=== PATIENT | female | born 1950 | race Caucasian/White ===

== ENCOUNTER 2019-09-27 16:14 | Observation (INO) ==
--- NOTE | 2019-09-27 16:53 | ERNOTE ---
[facility] Date of Service: 09/27/19 Presenting Symptoms: dental pain Time Seen by Provider: 09/27/19 16:38 Source: patient Exam Limitations: no limitations - Immun/Allergies/Home Medications Immunizations: IMMUNIZATION HX Immunizations Up to Date Yes History of Influenza Vaccine No Hx Pneumococcal Vaccination No Allergies/Adverse Reactions: Allergies Allergy/AdvReac Type Severity Reaction Status Date / Time No Known Allergies Allergy Unverified 09/27/19 16:30 Home Medications: HOME MEDICATIONS Hydrochlorothiazide [Hydrodiuril] 25 mg PO DAILY 09/27/19 [Last Taken Unknown] Lisinopril [Prinivil] 10 mg PO DAILY 09/27/19 [Last Taken Unknown] - History of Present Illness Narrative: 69-year-old female complaining of swelling of the right cheek began 24 hours ago has become more swollen is red spots painful she cannot eat she says she is also been running a temperature at home but we have not recorded Date (Duration): 09/25/19 Time (Timing): 16:49 Severity: Present: moderate ENT Location: Present: dental, facial Prearrival Treatment: Present: over the counter meds Modifying Factors - Improves: Reports: nothing Modifying Factors - Worsens: Reports: nothing Associated Symptoms - ENT: Reports: fever, tooth pain, jaw swelling Review of Systems - Review of Systems Constitutional: Present: recent illness EYE: Present: no symptoms reported ENT: Present: no symptoms reported Respiratory: Present: no symptoms reported Cardiology: Present: no symptoms reported Gastrointestinal/Abdominal: Present: no symptoms reported Genitourinary: Present: no symptoms reported Musculoskeletal: Present: no symptoms reported Skin: Present: no symptoms reported Neurological: Present: no symptoms reported Endocrine: Present: no symptoms reported Hematologic/Lymphatic: Present: no symptoms reported All Other Systems: All systems neg except as marked Medical History (Last Reviewed 09/27/19 @ 16:51 by Octavio Anderson MD) High blood pressure Surgical History: Surgical History (Last Reviewed 09/27/19 @ 17:18 by Mimi Adamson RN) No pertinent past surgical history Social History: (Last Reviewed 09/27/19 @ 17:18 by Mimi Adamson RN) Tobacco: Smoking Status: Never smoker Alcohol: alcohol intake: never Substance Use: substance use type: does not use Physical Exam - Physical Exam General Appearance: Present: wd/wn, alert, moderate distress Head Exam: Present: other - Right side of the face swollen red hot painful to touch Eye Exam: Normal inspection: bilateral Ears, Nose, Throat: Present: other - Right side of the face cheek red hot tender upper molar extremely painful Neck: Present: normal inspection, supple, lymphadenopathy (L) Respiratory: Present: no respiratory distress Cardiovascular/Chest: Present: regular rate, rhythm Back Exam: Present: normal inspection Extremity Exam: Present: normal inspection Neurological Exam: Present: alert Skin Exam: Present: other - Right cheek red hot swollen Progress - Results and Orders Patient's Lab Results:: I have reviewed the patient's lab results. Results and Orders: Laboratory Tests 09/27/19 17:09 WBC 19.1 H RBC 4.42 Hgb 13.9 Hct 40.9 MCV 92.5 MCH 31.4 H Neutrophils % 81.0 H Lymphocytes % 11.7 L Laboratory Tests 09/27/19 09/27/19 17:09 17:09 PT 10.7 INR (Anticoag Therapy) 1.08 PTT ([place]) 26.9 Sodium 137 Plasma Sodium 137 Potassium 3.5 Chloride 100 Carbon Dioxide 26.1 Anion Gap 14.4 H BUN 17 Creatinine 1.20 Est GFR (Non-Af Amer) 47 L BUN/Creatinine Ratio 14.2 Random Glucose 127 H Calcium 9.5 Calcium Adj for Albumin 9.1 Total Bilirubin 1.2 H AST 12 Alkaline Phosphatase 89 Total Protein 8.2 Albumin 4.1 - Vital Signs Patient's Vital Signs:: I have reviewed the patient's vital signs. Vital Signs: Vital Signs 09/27/19 16:26 Temperature 37.3 C Pulse Rate 93 Respiratory Rate 16 Blood Pressure 177/80 H O2 Sat by Pulse Oximetry 98 - CT/Ultrasound CT/Ultrasound Narrative: MPRESSION: 1. NONSPECIFIC RIGHT-SIDED PAROTIDITIS. 2. SURROUNDING INFLAMMATION BUT WITHOUT DISCRETE FLUID COLLECTION OR ABSCESS FORMATION IDENTIFIED. 3. NONSPECIFIC LYMPHADENOPATHY THAT APPEARS REACTIVE. 4. INCOMPLETELY EVALUATED INDETERMINATE RIGHT THYROID CYSTIC NODULES. RECOMMEND FOLLOW-UP WITH NONEMERGENT THYROID ULTRASOUND FOR FURTHER EVALUATION. Electronically signed by Shemar Mccabe M.D.. Shemar Mccabe MD CT maxillofacial - Progress/Reassessment Chief Complaint: Dental Problem Progress:: Unchanged Progress Note-Subjective: 09/27/19 18:49 Have tried several minutes of carotid massage to get any secretion or stone with no success have spoken to ENT they will consult in the morning and will admit to [facility] for antibiotics and pain control Plan - Plan Plan: Patient be admitted to the hospital for antibiotics and pain control to Dr. Argueta also Dr. Goldstein ENT has been consult Departure Clinical Impression: Parotitis not due to mumps, Cellulitis of face - Departure Disposition: Short Term Hospital Inpatient Condition: Stable Referrals: Shelley Perry MD [Primary Care Provider] -
[2019-09-27] MEDS ORDERED: NORMAL SALINE 1,000 ML IV ONE (16:54)
[2019-09-27] MEDS ORDERED: AMPICILLIN SODIUM/SULBACTAM NA 3 GM in NORMAL SALINE 100 ML IV ONE (16:57)
[2019-09-27] MEDS ORDERED: KETOROLAC TROMETHAMINE 30 MG/ML VIAL IV ONE (16:57)
[2019-09-27 17:15] LABS: Hematocrit 40.9 % (37.0-47.0); Hemoglobin 13.9 gm/dL (12.5-16.0); Mean Cell Volume 92.5 fl (78-100); Mean Corpuscular Hemoglobin 31.4 pg (27-31); Mean Platelet Volume 9.2 fl (8-12.5); Neutrophil # 15.5 K/mm3 (1.3-6.0); Platelet Count 265 K/mm3 (150-450); Red Blood Count 4.42 M/mm3 (4.2-5.4); Red Cell Distribution Width 12.8 % (11.5-14.0); White Blood Count 19.1 K/mm3 (4.0-10.5)
[2019-09-27 17:32] LABS: Albumin * 4.1 gm/dl (3.4-5.0); Anion Gap 14.4 mmol/L (6.8-13.8); BUN/Creatinine Ratio 14.2 (9.0-21.6); Bilirubin, Total 1.2 mg/dL (0.0-1.1); Ca. Corrected For Albumin 9.1 mg/dL (8.4-10.2); Calcium * 9.5 mg/dL (7.9-10.9); Carbon Dioxide 26.1 mmol/L (24-32.6); Potassium 3.5 mmol/L (3.4-4.6); Prothrombin Time (Patient) 10.7 Seconds (9.1-10.7); Total Protein 8.2 gm/dL (6.2-8.2)
[2019-09-27 17:33] LABS: INR 1.08 INR (0.92-1.08); Partial Thrombolplastin Time 26.9 Seconds (24-32)
[2019-09-27] MEDS ORDERED: AMPICILLIN SODIUM/SULBACTAM NA 3 GM in NORMAL SALINE 100 ML IV SCH (19:15)
--- NOTE | 2019-09-27 19:20 | HP ---
Chief Complaint - Chief Complaint Date of Service: 09/27/19 Time of Service: 19:00 Chief Complaint: Right-sided facial pain x2 days History of Present Illness: 69-year-old female with a past medical history of hypertension presents with right facial pain. She states her symptoms began 2 days ago and have progressively worsened. Pain was is rated 10 out of 10 at its worse. She also notes tenderness to palpation of her face. She reports having fever of 101 F at home. She states she was eating and drinking without difficulty at home. She was up all night due to the pain and presented to the emergency department today. In the emergency department she was found to have leukocytosis of 19.1 CT head is positive for right-sided parotiditis without discrete abscess formation, nonspecific lymphadenopathy that appears reactive and right cystic thyroid nodules that would need nonemergent thyroid ultrasound for follow-up. She received a dose of Unasyn in the emergency department and pain is tolerable withIV ketorolac. She is being admitted for parotiditis and ENT has been consulted and will see her in the morning. Medical History (Last Reviewed 09/27/19 @ 17:18 by Mimi Adamson RN) High blood pressure Surgical History: Surgical History (Last Reviewed 09/27/19 @ 17:18 by Mimi Adamson RN) No pertinent past surgical history Family History: Family History (Last Updated 09/27/19 @ 19:17 by Viry Argueta MD) Other Family history non-contributory Social History: (Last Reviewed 09/27/19 @ 17:18 by Mimi Adamson RN) Tobacco: Smoking Status: Never smoker Alcohol: alcohol intake: never Substance Use: substance use type: does not use Review Of Systems (GEN) - Review of Systems Generalized/Overall Review: Present: Fever EENTM: Present: Other - Right-sided facial pain Respiratory: Absent: Shortness of Breath Cardiac: Absent: Chest Pain Abdominal: Absent: Abdominal Pain Misc: All systems neg except as marked Immunizations: IMMUNIZATION HX Immunizations Up to Date Yes History of Influenza Vaccine No Hx Pneumococcal Vaccination No Allergies/Adverse Reactions: Allergies Allergy/AdvReac Type Severity Reaction Status Date / Time No Known Allergies Allergy Unverified 09/27/19 16:30 Home Medications: HOME MEDICATIONS Hydrochlorothiazide [Hydrodiuril] 25 mg PO DAILY 09/27/19 [Last Taken Unknown] Lisinopril [Prinivil] 10 mg PO DAILY 09/27/19 [Last Taken Unknown] Exam - Exam Vital Signs: Vital Signs - Last Taken Temp 37.4 C 09/27/19 18:47 Pulse 80 09/27/19 18:47 Resp 18 09/27/19 18:47 BP 159/76 H 09/27/19 18:47 Pulse Ox 97 09/27/19 18:47 Constitutional: Present: Alert, Well developed, Well nourished, No distress, Elderly ENT Exam: Present: hearing grossly normal, moist mucous membranes, other - Inflammation of the right parotid gland, gland is firm and very tender to palpation Eye Exam: bilateral eye: normal inspection, PERRL, EOMI Neck: Absent: normal inspection, lymphadenopathy (L) Back Exam: Present: no CVA tenderness Respiratory: Present: lungs clear, no respiratory distress, no accessory muscle use, No wheezing. Absent: crackles, rhonchi Cardiovascular/Chest: Present: normal peripheral pulses, regular rate, rhythm, no edema, no murmur Peripheral Pulses: dorsalis-pedis (R): 1+, dorsalis-pedis (L): 1+ Abdomen: Present: Normal bowel sounds, soft, nontender Extremity: Present: no pedal edema Skin Exam: Present: normal color, warm/dry Neurologic: Present: alert, normal mood/affect Appearance: Present: appropriate appearance, appropriate insight Eye contact: Present: cooperative Thoughts: Present: normal thought pattern, normal mood /affect Diagnostic Studies: Abnormal Lab Results 09/27/19 09/27/19 Range/Units 17:09 17:09 WBC 19.1 H (4.0-10.5) K/mm3 MCH 31.4 H (27-31) pg Immature Gran % (Auto) 0.50 H (0.001-0.429) % Immature Gran # (Auto) 0.10 H (0.000-0.0310) K/mm3 Neutrophils % 81.0 H (42-75.0) % Lymphocytes % 11.7 L (20-51) % Neutrophils # 15.5 H (1.3-6.0) K/mm3 Monocytes # 1.2 H (0.0-1.0) k/mm3 Anion Gap 14.4 H (6.8-13.8) mmol/L Est GFR (Non-Af Amer) 47 L (60-130) mL/min Random Glucose 127 H (70-110) mg/dL Total Bilirubin 1.2 H (0.0-1.1) mg/dL ALT 17 L (19-67) U/L Laboratory Results WBC 19.1 K/mm3 (4.0-10.5) H 09/27/19 17:09 RBC 4.42 M/mm3 (4.2-5.4) 09/27/19 17:09 Hgb 13.9 gm/dL (12.5-16.0) 09/27/19 17:09 Hct 40.9 % (37.0-47.0) 09/27/19 17:09 MCV 92.5 fl (78-100) 09/27/19 17:09 MCH 31.4 pg (27-31) H 09/27/19 17:09 MCHC 34.0 g/dl (32-36) 09/27/19 17:09 RDW 12.8 % (11.5-14.0) 09/27/19 17:09 Plt Count 265 K/mm3 (150-450) 09/27/19 17:09 MPV 9.2 fl (8-12.5) 09/27/19 17:09 Immature Gran % (Auto) 0.50 % (0.001-0.429) H 09/27/19 17:09 Immature Gran # (Auto) 0.10 K/mm3 (0.000-0.0310) H 09/27/19 17:09 Neutrophils % 81.0 % (42-75.0) H 09/27/19 17:09 Lymphocytes % 11.7 % (20-51) L 09/27/19 17:09 Monocytes % 6.5 % (0.0-9) 09/27/19 17:09 Eosinophils % 0.1 % (0.0-3.0) 09/27/19 17:09 Basophils % 0.2 % (0.0-1.0) 09/27/19 17:09 Nucleated RBC % 0.0 k/mm3 (0-1) 09/27/19 17:09 Neutrophils # 15.5 K/mm3 (1.3-6.0) H 09/27/19 17:09 Lymphocytes # 2.24 k/mm3 (1.5-3.5) 09/27/19 17:09 Monocytes # 1.2 k/mm3 (0.0-1.0) H 09/27/19 17:09 Eosinophils # 0.0 k/mm3 (0.0-0.7) 09/27/19 17:09 Absolute Basophils 0.0 k/mm3 (0.0-0.1) 09/27/19 17:09 PT 10.7 Seconds (9.1-10.7) 09/27/19 17:09 INR (Anticoag Therapy) 1.08 INR (0.92-1.08) 09/27/19 17:09 PTT ([place]) 26.9 Seconds (24-32) 09/27/19 17:09 Sodium 137 mmol/L (132-142) 09/27/19 17:09 Plasma Sodium 137 mmol/L (130-142) 09/27/19 17:09 Potassium 3.5 mmol/L (3.4-4.6) 09/27/19 17:09 Chloride 100 mmol/L (97-106) 09/27/19 17:09 Carbon Dioxide 26.1 mmol/L (24-32.6) 09/27/19 17:09 Anion Gap 14.4 mmol/L (6.8-13.8) H 09/27/19 17:09 BUN 17 mg/dL (3-23) 09/27/19 17:09 Creatinine 1.20 mg/dL (0.4-1.4) 09/27/19 17:09 Est GFR (Non-Af Amer) 47 mL/min (60-130) L 09/27/19 17:09 BUN/Creatinine Ratio 14.2 (9.0-21.6) 09/27/19 17:09 Random Glucose 127 mg/dL (70-110) H 09/27/19 17:09 Calcium 9.5 mg/dL (7.9-10.9) 09/27/19 17:09 Calcium Adj for Albumin 9.1 mg/dL (8.4-10.2) 09/27/19 17:09 Total Bilirubin 1.2 mg/dL (0.0-1.1) H 09/27/19 17:09 AST 12 U/L (0-48) 09/27/19 17:09 ALT 17 U/L (19-67) L 09/27/19 17:09 Alkaline Phosphatase 89 U/L (50-170) 09/27/19 17:09 Total Protein 8.2 gm/dL (6.2-8.2) 09/27/19 17:09 Albumin 4.1 gm/dl (3.4-5.0) 09/27/19 17:09 Assessment/Plan - Narrative Narrative: 69-year-old female with a past medical history of hypertension presents with right facial pain. She states her symptoms began 2 days ago and have progressively worsened. Pain was is rated 10 out of 10 at its worse. She also notes tenderness to palpation of her face. She reports having fever of 101 F a t home. She states she was eating and drinking without difficulty at home. She was up all night due to the pain and presented to the emergency department today. In the emergency department she was found to have leukocytosis of 19.1 CT head is positive for right-sided parotiditis without discrete abscess formation, nonspecific lymphadenopathy that appears reactive and right cystic thyroid nodules that would need nonemergent thyroid ultrasound for follow-up. She received a dose of Unasyn in the emergency department and pain is tolerable with IV ketorolac. She is being admitted for parotiditis and ENT has been consulted and will see her in the morning. Plan #1 Continue with ampicillin 3 g every 6 hours IV #2 continue with Toradol 15 mg every 6 hours as needed pain #3 CBC and CMP in the morning #4 awaiting ENT recommendations #5 continue with home medications - Assessment/Plan (1) Parotitis not due to mumps Problem: Acute (2) Hypertension Problem: Chronic Qualifiers: Hypertension type: essential hypertension Qualified Code(s): I10 - Essential (primary) hypertension
[2019-09-27] MEDS ORDERED: ACETAMINOPHEN 325 MG TABLET PO PRN (20:25)
[2019-09-27] MEDS: oxyCODONE HCL/ACETAMINOPHEN 1 TAB TABLET PO PRN (22:45)
[2019-09-27] MEDS: KETOROLAC TROMETHAMINE 15 MG/ML VIAL IV PRN (23:58)
[2019-09-28] MEDS: AMPICILLIN SODIUM/SULBACTAM NA 3 GM in NORMAL SALINE 100 ML IV SCH ×6 (00:22→17:44)
[2019-09-28] MEDS: oxyCODONE HCL/ACETAMINOPHEN 1 TAB TABLET PO PRN ×2 (05:31→10:45)
[2019-09-28 07:01] LABS: Albumin * 3.1 gm/dl (3.4-5.0); Anion Gap 11.7 mmol/L (6.8-13.8); BUN/Creatinine Ratio 13.8 (9.0-21.6); Bilirubin, Total 1.1 mg/dL (0.0-1.1); Ca. Corrected For Albumin 8.8 mg/dL (8.4-10.2); Calcium * 8.4 mg/dL (7.9-10.9); Carbon Dioxide 26.7 mmol/L (24-32.6); Potassium 3.4 mmol/L (3.4-4.6); Total Protein 6.5 gm/dL (6.2-8.2)
[2019-09-28] MEDS ORDERED: KETOROLAC TROMETHAMINE 30 MG/ML VIAL ONE (07:16)
[2019-09-28] MEDS: KETOROLAC TROMETHAMINE 15 MG/ML VIAL IV PRN ×2 (07:21→17:44)
[2019-09-28 07:31] LABS: Hematocrit 34.3 % (37.0-47.0); Hemoglobin 11.6 gm/dL (12.5-16.0); Mean Cell Volume 93.2 fl (78-100); Mean Corpuscular Hemoglobin 31.5 pg (27-31); Mean Corpuscular Hgb Conc 33.8 g/dl (32-36); Mean Platelet Volume 9.6 fl (8-12.5); Platelet Count 219 K/mm3 (150-450); Red Blood Count 3.68 M/mm3 (4.2-5.4); White Blood Count 20.2 K/mm3 (4.0-10.5)
[2019-09-28 07:33] LABS: Total Cells Counted 100
[2019-09-28 07:39] LABS: Lymphocyte 10 % (20-51); Monocyte 6 % (0-9); Neutrophil 84 % (42-75); Platelet Estimate Normal (NORMAL); RBC Morphology Normal (NORMAL)
[2019-09-28] MEDS: HYDROCHLOROTHIAZIDE 25 MG TABLET PO SCH (08:41)
[2019-09-28] MEDS: LISINOPRIL 10 MG TABLET PO SCH (08:41)
--- NOTE | 2019-09-28 09:55 | PN ---
Subjective - Date and Time Seen Date: 09/28/19 Time: 09:41 Subjective Narrative: She is tolerating liquid diet and states her pain has improved with the pain medications. She was able to sleep at night. Objective - Review of Systems Generalized/Overall Review: Denies: Fever EENTM: Reports: Other - Right facial pain and swelling Respiratory: Denies: Shortness of Breath Cardiac: Denies: Chest Pain Abdominal: Denies: Abdominal Pain Misc: All systems neg except as marked - Vitals Vitals: Last Vital Signs Temp 37.0 C 09/28/19 08:00 Pulse 78 09/28/19 08:41 Resp 20 09/28/19 08:00 BP 111/65 09/28/19 08:41 Pulse Ox 93 09/28/19 08:00 - Abnormal Lab Findings Abnormal Lab Findings: Abnormal Lab Results 09/27/19 09/27/19 09/28/19 Range/Units 17:09 17:09 06:40 WBC 19.1 H 20.2 H (4.0-10.5) K/mm3 RBC 3.68 L (4.2-5.4) M/mm3 Hgb 11.6 L (12.5-16.0) gm/dL Hct 34.3 L (37.0-47.0) % MCH 31.4 H 31.5 H (27-31) pg Immature Gran % (Auto) 0.50 H (0.001-0.429) % Immature Gran # (Auto) 0.10 H (0.000-0.0310) K/mm3 Neutrophils % 81.0 H (42-75.0) % Neutrophils % (Manual) 84 H (42-75) % Lymphocytes % 11.7 L (20-51) % Lymphocytes % (Manual) 10 L (20-51) % Neutrophils # 15.5 H (1.3-6.0) K/mm3 Neutrophils # (Manual) 17.0 H (1.3-6.0) K/mm3 Monocytes # 1.2 H (0.0-1.0) k/mm3 Monocytes # (Manual) 1.2 H (0.0-1.0) k/mm3 Anion Gap 14.4 H (6.8-13.8) mmol/L Est GFR (Non-Af Amer) 47 L (60-130) mL/min Random Glucose 127 H (70-110) mg/dL Total Bilirubin 1.2 H (0.0-1.1) mg/dL ALT 17 L (19-67) U/L Albumin (3.4-5.0) gm/dl /18/20 Range/Units 06:40 WBC (4.0-10.5) K/mm3 RBC (4.2-5.4) M/mm3 Hgb (12.5-16.0) gm/dL Hct (37.0-47.0) % MCH (27-31) pg Immature Gran % (Auto) (0.001-0.429) % Immature Gran # (Auto) (0.000-0.0310) K/mm3 Neutrophils % (42-75.0) % Neutrophils % (Manual) (42-75) % Lymphocytes % (20-51) % Lymphocytes % (Manual) (20-51) % Neutrophils # (1.3-6.0) K/mm3 Neutrophils # (Manual) (1.3-6.0) K/mm3 Monocytes # (0.0-1.0) k/mm3 Monocytes # (Manual) (0.0-1.0) k/mm3 Anion Gap (6.8-13.8) mmol/L Est GFR (Non-Af Amer) 40 L (60-130) mL/min Random Glucose 130 H (70-110) mg/dL Total Bilirubin (0.0-1.1) mg/dL ALT 17 L (19-67) U/L Albumin 3.1 L (3.4-5.0) gm/dl - Exam Constitutional: Present: Alert, Well developed, Well nourished, No distress, Obese ENT Exam: Present: hearing grossly normal, other - Edema of right parotid, firm and very tender to palpation Neck: Absent: lymphadenopathy (R), lymphadenopathy (L) Respiratory: Present: lungs clear, no respiratory distress, no accessory muscle use. Absent: rhonchi, wheezing Cardiovascular/Chest: Present: normal peripheral pulses, regular rate, rhythm, no edema, no murmur Abdomen: Present: Normal bowel sounds, soft, nontender Extremity: Present: no pedal edema Skin Exam: Present: normal color, warm/dry Neurologic: Present: alert, normal mood/affect Appearance: Present: appropriate appearance, appropriate insight Eye contact: Present: cooperative Thoughts: Present: normal thought pattern, normal mood /affect Assessment/Plan Plan Narrative: 69-year-old female with a past medical history of hypertension presents with right facial pain. She states her symptoms began 2 days ago and have progressively worsened. Pain was is rated 10 out of 10 at its worse. She also notes tenderness to palpation of her face. She reports having fever of 101 F at home. She states she was eating and drinking without difficulty at home. She was up all night due to the pain and presented to the emergency department today. In the emergency department she was found to have leukocytosis of 19.1 CT head is positive for right-sided parotiditis without discrete abscess formation, nonspecific lymphadenopathy that appears reactive and right cystic thyroid nodules that would need nonemergent thyroid ultrasound for follow-up. She received a dose of Unasyn in the emergency department and pain is tolerable with IV ketorolac. She is being admitted for parotiditis and ENT has been consulted and will see her in the morning. Patient does feel better today and is tolerating a liquid diet. Her pain persists but has improved. ENT Dr. Santos was consulted and he recommends giving the patient Decadron 10 mg daily for 2 days, continue with Unasyn and if the patient improves she can be sent home tomorrow morning on Augmentin and Medrol dose pack. He will follow-up with her in [place] next week on Wednesday, October 04, 2019. He will also do a thyroid ultrasound at his office. Plan #1 Continue with ampicillin 3 g every 6 hours IV day 2 #2 continue with Toradol 15 mg every 6 hours as needed pain and Percocet 53 25 every 4 hours as needed #3 CBC and CMP in the morning #4 Per ENT recommendations, start Decadron 10 mg daily for 2 days #5 continue with home medications - Problems/Diagnosis (1) Parotitis not due to mumps Problem: Acute (2) Hypertension Problem: Chronic Qualifiers: Hypertension type: essential hypertension Qualified Code(s): I10 - Essential (primary) hypertension (3) Thyroid nodule Problem: Acute
[2019-09-28] MEDS: DEXAMETHASONE SODIUM PHOSPHATE 10 MG/ML VIAL IV SCH (11:32)
[2019-09-29] MEDS: AMPICILLIN SODIUM/SULBACTAM NA 3 GM in NORMAL SALINE 100 ML IV SCH ×2 (00:34→06:31)
[2019-09-29 06:55] LABS: Hematocrit 32.6 % (37.0-47.0); Mean Cell Volume 92.4 fl (78-100); Mean Corpuscular Hemoglobin 31.2 pg (27-31); Mean Corpuscular Hgb Conc 33.7 g/dl (32-36); Mean Platelet Volume 9.5 fl (8-12.5); Neutrophil # 17.1 K/mm3 (1.3-6.0); Neutrophil % 85.5 % (42-75.0); Platelet Count 233 K/mm3 (150-450); Red Blood Count 3.53 M/mm3 (4.2-5.4); Red Cell Distribution Width 12.8 % (11.5-14.0)
[2019-09-29 07:11] LABS: Albumin * 2.8 gm/dl (3.4-5.0); Anion Gap 10.2 mmol/L (6.8-13.8); BUN/Creatinine Ratio 17.9 (9.0-21.6); Bilirubin, Total 0.5 mg/dL (0.0-1.1); Ca. Corrected For Albumin 9.3 mg/dL (8.4-10.2); Calcium * 8.7 mg/dL (7.9-10.9); Carbon Dioxide 28.3 mmol/L (24-32.6); Potassium 3.5 mmol/L (3.4-4.6); Total Protein 6.5 gm/dL (6.2-8.2)
[2019-09-29] MEDS: HYDROCHLOROTHIAZIDE 25 MG TABLET PO SCH (08:15)
[2019-09-29] MEDS: LISINOPRIL 10 MG TABLET PO SCH (08:16)
[2019-09-29] MEDS: DEXAMETHASONE SODIUM PHOSPHATE 10 MG/ML VIAL IV SCH (08:20)
[2019-09-29] MEDS ORDERED: AMOX TR/POTASSIUM CLAVULANATE 875 MG TABLET PO SCH (09:00)
--- NOTE | 2019-09-29 10:20 | DS ---
(1) Parotitis not due to mumps Problem: Acute (2) Hypertension Problem: Chronic Qualifiers: Hypertension type: essential hypertension Qualified Code(s): I10 - Essential (primary) hypertension (3) Thyroid nodule Problem: Acute Hospital Course: 69-year-old female with a past medical history of hypertension presents with right facial pain. She states her symptoms began 2 days ago and have progressively worsened. Pain was is rated 10 out of 10 at its worse. She also notes tenderness to palpation of her face. She reports having fever of 101 F at home. She states she was eating and drinking without difficulty at home. She was up all night due to the pain and presented to the emergency department today. In the emergency department she was found to have leukocytosis of 19.1 CT head is positive for right-sided parotiditis without discrete abscess formation, nonspecific lymphadenopathy that appears reactive and right cystic thyroid nodules that would need nonemergent thyroid ultrasound for follow-up. She received a dose of Unasyn in the emergency department and pain is tolerable with IV ketorolac. She is being admitted for parotiditis and ENT has been consulted and will see her in the morning. ENT Dr. Santos was consulted and he recommended giving the patient Decadron 10 mg daily for 2 days, He will follow-up with her in [place] next week on Wednesday, October 04, 2019. He will also do a thyroid ultrasound at his office. She is stable for discharge home today. She will go home on Augmentin 875-125 mg twice a day for 10 days and Medrol Dosepak. She will follow-up with Dr. Diaz next week. She is feeling better and is tolerating her diet as well. Procedures Performed: none Results and Findings: Pending Mircobiology Results 09/27/19 17:32 Blood Blood Culture - Preliminary NO GROWTH 24 HOURS 09/27/19 17:09 Blood Blood Culture - Preliminary NO GROWTH 24 HOURS Lab Pending Results 09/27/19 17:09: WBC 19.1 H, RBC 4.42, Hgb 13.9, Hct 40.9, MCV 92.5, MCH 31.4 H, MCHC 34.0, RDW 12.8, Plt Count 265, MPV 9.2, Immature Gran % (Auto) 0.50 H, Immature Gran # (Auto) 0.10 H, Neutrophils % 81.0 H, Lymphocytes % 11.7 L, Monocytes % 6.5, Eosinophils % 0.1, Basophils % 0.2, Nucleated RBC % 0.0, Neutrophils # 15.5 H, Lymphocytes # 2.24, Monocytes # 1.2 H, Eosinophils # 0.0, Absolute Basophils 0.0 09/27/19 17:09: PT 10.7, INR (Anticoag Therapy) 1.08, PTT ([place]) 26.9 09/27/19 17:09: Sodium 137, Plasma Sodium 137, Potassium 3.5, Chloride 100, Carbon Dioxide 26.1, Anion Gap 14.4 H, BUN 17, Creatinine 1.20, Est GFR (Non-Af Amer) 47 L, BUN/Creatinine Ratio 14.2, Random Glucose 127 H, Calcium 9.5, Calcium Adj for Albumin 9.1, Total Bilirubin 1.2 H, AST 12, ALT 17 L, Alkaline Phosphatase 89, Total Protein 8.2, Albumin 4.1 09/28/19 06:40: WBC 20.2 H, RBC 3.68 L, Hgb 11.6 L, Hct 34.3 L, MCV 93.2, MCH 31.5 H, MCHC 33.8, RDW 13.0, Plt Count 219, MPV 9.6, Neutrophils % (Manual) 84 H, Lymphocytes % (Manual) 10 L, Monocytes % (Manual) 6, Neutrophils # (Manual) 17.0 H, Lymphocytes # (Manual) 2.0, Monocytes # (Manual) 1.2 H, Platelet Estimate Normal, RBC Morphology Normal 09/28/19 06:40: Sodium 135, Plasma Sodium 135, Potassium 3.4, Chloride 100, Carbon Dioxide 26.7, Anion Gap 11.7, BUN 19, Creatinine 1.38, Est GFR (Non-Af Amer) 40 L, BUN/Creatinine Ratio 13.8, Random Glucose 130 H, Calcium 8.4, Calcium Adj for Albumin 8.8, Total Bilirubin 1.1, AST 14, ALT 17 L, Alkaline Phosphatase 86, Total Protein 6.5, Albumin 3.1 L 09/29/19 06:45: WBC 20.0 H, RBC 3.53 L, Hgb 11.0 L, Hct 32.6 L, MCV 92.4, MCH 31.2 H, MCHC 33.7, RDW 12.8, Plt Count 233, MPV 9.5, Immature Gran % (Auto) 1.30 H, Immature Gran # (Auto) 0.25 H, Neutrophils % 85.5 H, Lymphocytes % 7.8 L, Monocytes % 5.2, Eosinophils % 0.1, Basophils % 0.1, Nucleated RBC % 0.0, Neutrophils # 17.1 H, Lymphocytes # 1.55, Monocytes # 1.0, Eosinophils # 0.0, Absolute Basophils 0.0 09/29/19 06:45: Sodium 136, Plasma Sodium 136, Potassium 3.5, Chloride 101, Carbon Dioxide 28.3, Anion Gap 10.2, BUN 20, Creatinine 1.12, Est GFR (Non-Af Amer) 51 L D, BUN/Creatinine Ratio 17.9, Random Glucose 126 H, Calcium 8.7, Calcium Adj for Albumin 9.3, Total Bilirubin 0.5, AST 13, ALT 16 L, Alkaline Phosphatase 90, Total Protein 6.5, Albumin 2.8 L Discharge Location: Home Disposition: Home self-care Condition: Stable Discharge Activity: Activity as tolerated [facility] Referrals: Shelley Perry MD [Primary Care Provider] - Prescriptions (Any new or edited meds): Amox Tr/Potassium Clavulanate [Augmentin 875-125 Tablet] 875 mg PO BID #20 tab Transmission Status: Pending to [facility] Methylprednisolone [Medrol Dosepak] 4 mg PO QID #21 tab Transmission Status: Pending to [facility] Complete Home Medications List: Complete Home Medication List: Hydrochlorothiazide [Hydrodiuril] 25 mg PO DAILY 09/27/19 Lisinopril [Prinivil] 5 mg PO DAILY 09/27/19 Amox Tr/Potassium Clavulanate [Augmentin 875-125 Tablet] 875 mg PO BID #20 tab 09/29/19 Methylprednisolone [Medrol Dosepak] 4 mg PO QID #21 tab 09/29/19
[2019-09-29 10:39] VITALS: BP 118/60
== END 2019-09-29 11:45 | disposition home or self-care (01) ==
LOC: MS 16:14 → ER 16:14 → MS 19:25
PROVIDERS: ADMIT Internal Medicine; ATTEND Internal Medicine
CPT/HCPCS: 36415; 70487; 80053; 85025; 85610; 85730; 87040; 96365; 96366; 96375; 96376; 99283; 99284; G0378; Q9967